=== PATIENT | female | born 1965 | race Hispanic/Latino ===

== ENCOUNTER 2016-11-30 15:24 | Emergency (ER) | payer OTHER ==
[~2016-11-30] VITALS: Ht 152.4 cm; Wt 106.8 kg
[~2016-11-30 15:24] MED LIST: CITA10TA9 PO; LISI-571 PO
[2016-11-30 15:31] VITALS: BP 187/91; PULSE 97; RESP 16; O2SAT 98
--- NOTE | 2016-11-30 15:42 | ED.REPORT ---
HPI-Chest Pain 40 and Over Date of Service November 30, 2016 ED Provider: Karri Yadav MD A 51 year old female with a history of hypertension, GERD and depression presents to the ED with sudden onset chest pain that began at 1500 this afternoon.Symptoms associated with the episode include SOB, diaphoresis and tingling in her arms. [place] and lasted a few minutes. Patient reports recent stressors including a recent car break down and she was unable to contact her . Patient currently takes Lisinopril and Premarin. She denies any previous cardiac history or recent surgery. Nursing Notes Stated Complaint: CHEST PAIN, NUMBNESS/TINGLING BILATERAL ARMS Chief Complaint: Chest Pain Nursing Notes Reviewed: Yes Allergies: Coded Allergies: No Known Allergies (Verified Allergy, Severe, 11/30/16) Scheduled Citalopram (Citalopram) 10 Mg Tablet 10 MG PO DAILY Lisinopril (Lisinopril) 5 Mg Tablet 10 MG PO DAILY General Time Seen by MD: 15:41 Chief Complaint Chest pain Hx Obtained From: Patient Arrived By: Walk-in Sudden in Onset?: No Symptom Duration: Since onset Location: : Chest left: Chest right Quality: Painful Radiation: : Does not radiate Severity: Current: Mild Severity: Maximum: Moderate Associated with: Reports: Diaphoresis, Numbness/Tingling, Shortness of Breath Pertinent Negative: Pt denies other symptoms Recent Healthcare: No recent doctor visit, No recent hospitalization Risk Factors )( CAD Risk Stratification Hypertension Risk factors reviewed )( TAD Risk Stratification Hypertension Risk factors reviewed )( PE Risk Stratification Risk factors reviewed Past Medical History Past Medical History Hypertension GERD Depression Past Surgical History Bilateral Breast biopsy Reports: Cholecystectomy, Tonsillectomy Social History Other Social History: Good social support, Local resident Ambulatory Status Independent Review of Systems Respiratory: Reports: Shortness of breath Cardiovascular: Reports: Chest pain Skin: Reports Diaphoresis Neurologic: Reports: Numbness (tingling in extremities) Complete sys rev & neg: except as marked. Physical Exam Initial Vital Signs Vital Signs (First) Date Time Temp Pulse Resp B/P Pulse Ox O2 Delivery O2 Flow Rate FiO2 11/30/16 15:31 36.8 97 16 187/91 98 Room Air Initial VS: Reviewed Head / Eyes: Atraumatic, Normocephalic, PERRL Neck: Supple, Non-tender, Full range of motion Extremities: Vascular intact, Neuro intact, No swelling (No calf swelling) , No tenderness (No calf tenderness) Skin: Warm, Dry, No cyanosis Neurologic: Alert, Oriented, Nonfocal Psychiatric: Mood/affect normal, Behavior normal, Normal thought content General/Constitutional: Awake, Alert, No acute distress Respiratory / Chest: Atraumatic, Breath sounds NL, Breath sounds = bilat, No respiratory distress Cardiovascular: Heart rate NL, Regular rhythm, Heart sounds NL, No gallop, No murmurs, No rubs, Peripheral circulation NL, Pulses = bilaterally Abdomen: Atraumatic, Soft, Non-tender, No distention Neurologic: Oriented X3, Speech NL, No motor deficits, No sensory deficits, CN II - XII intact, Reflexes equal bilat No lateralizing neuro deficits Interpretation & Diagnostics Lab Results Interpretation Result Diagram: 11/30/16 1550 11/30/16 1550 Test 11/30/16 15:50 White Blood Count 11.9th/mm3 (3.8-10.1) Red Blood Count 4.83mil/mm3 (3.90-5.20) Hemoglobin 14.3g/dL (12.0-15.6) Hematocrit 43.1% (35.0-46.0) Mean Corpuscular Volume 89.2fL (81-100) Mean Corpuscular Hemoglobin 29.6pg (27.0-35.0) Mean Corpuscular Hemoglobin Concent 33.2% (32.0-37.0) Red Cell Distribution Width 12.9% (12.3-15.4) Platelet Count 224bil/L (150-400) Neutrophils (%) (Auto) 60.4% (40-74) Lymphocytes (%) (Auto) 32.5% (14-46) Monocytes (%) (Auto) 5.6% (4-12) Eosinophils (%) (Auto) 0.9% (0-5) Basophils (%) (Auto) 0.3% (0-3) D-Dimer < 0.50mg/L FEU (<0.50) Sodium Level 136mEq/L (134-144) Potassium Level 4.2mEq/L (3.5-5.2) Chloride Level 98mEq/L (97-108) Carbon Dioxide Level 20mmol/L (18-29) Blood Urea Nitrogen 13mg/dL (6-24) Creatinine 0.47mg/dL (0.57-1.00) Estimat Glomerular Filtration Rate 201mL/min (>59) Glucose Level 88mg/dL (60-99) Calcium Level 9.2mg/dL (8.5-10.1) Magnesium Level 2.1mg/dL (1.6-2.6) Total Bilirubin 0.2mg/dL (0.0-1.2) Aspartate Amino Transf (AST/SGOT) 19U/L (0-50) Alanine Aminotransferase (ALT/SGPT) 16U/L (0-32) Alkaline Phosphatase 104U/L (25-150) Troponin T < 0.010ug/L (0.0-0.011) Total Protein 7.3g/dL (6.4-8.4) Albumin 4.3g/dL (3.4-5.0) ECG Interpretation ECG Interpretation: EKG Normal Sinus Rhythm Rate 97 Normal axis Normal intervals No ST segment changes No T wave abnormalities No prior EKG for comparison Time: 15:58 Interpreted by: ED physician X-Ray Chest Interpretation Chest Xray Interpretation: IMPRESSION: No acute cardiopulmonary disease process. 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 All of this [place] and in the setting of multiple recent stressors including [place] her [place] being able to reach her . Upon arrival in the emergency department the patient is afebrile with stable vital signs and in no apparent distress. She is somewhat anxious. Laboratory studies notable as below: leukocytosis of 11.9 otherwise unremarkable CMC Negative Trop Negative D-dimer CXR: Obtained, reviewed and interpreted by myself shows no evidence of infiltrates, effusions or pneumothorax. Cardiac and mediastinal silhouette normal. No bony or soft tissue abnormalities. EKG Normal Sinus Rhythm Rate 97 Normal axis Normal intervals No ST segment changes No T wave abnormalities No prior EKG for comparison Patient was treated with the below medications: Ativan Aspirin IV fluids Patient remained stable and in no apparent distress. I considered pulmonary embolism however the overall presentation is not very suggestive thereof. No physical exam evidence of DVT. She is at slightly higher risk given that she takes Premarin however her d-dimer is negative and she is without tachypnea, tachycardia or respiratory distress. I do not feel that further workup for pulmonary embolism is immediately indicated. EKG and initial screening troponin revealed no findings suggestive of acute coronary syndrome. The presentation is not very convincing thereof and I do not feel that further immediate workup for ACS is indicated. The overall presentation seems most consistent with panic/anxiety as evidenced by multiple recent stressors, sensation of racing heart, hyperventilation causing tingling in the fingertips. At this time the patient is stable and in no apparent distress. She is appropriate for discharge home. She will follow up closely with her primary care physician. She is advised to return for any recurrent symptoms. Prior to discharge follow-up and return precautions were reviewed in detail with the patient who verbalized understanding and agreement with the plan. The patient was discharged in stable condition. Time of Eval: 17:03 Patient Status: Condition improved Re-Evaluation/Progress Note: Patient is informed of her results and diagnosis. All of the patient's questions are addressed. She understands and agrees with treatment plan. Counseled Regarding: Diagnosis, Lab results, Need for follow-up, When/why to return to ED Discharge & Departure Primary Impression: Chest pain Chest pain type: unspecified Qualified Code: R07.9 - Chest pain, unspecified Additional Impressions: Anxiety Panic attack Hormone replacement therapy Disposition: Home Discharge Condition All VS Reviewed: Yes Condition: Improved Patient Instructions: Chest Pain (ED), Generalized Anxiety Disorder (ED) Additional Instructions: Thank you for seeking care at the emergency room. It is difficult for us to make definitive diagnoses in the ED but we believe that your symptoms are likely due to your recent stressors. Our primary goal today in the ED was to evaluate you for any life-threatening conditions. Your evaluation was reassuring. You should follow-up with your primary doctor in the next week for a recheck. You should return to the ED immediately if you develop any fevers, vomiting, cough, shortness of breath, chest pain, lightheadedness, weakness or any other concerning signs or symptoms. Thank you for letting us partake in your care today. Referrals: Sandie Conrad MD (PCP) Scribe Attestation Portions of this note were transcribed by Juni Livingston. I, Dr. Yadav personally performed the history, physical exam and medical decision-making; I reviewed and confirmed the accuracy of the information in the transcribed note. Signed by: León Rasheed, 11/30/16 0061. copies to: Sandie Conrad MD, Beck O MD November 30, 2016 15:42 JUNI LIVINGSTON November 30, 2016 15:59
[2016-11-30 15:59] LABS: BASOPHILS % (AUTO) 0.3 % (0-3); EOSINOPHILS % (AUTO) 0.9 % (0-5); MONOCYTES % (AUTO) 5.6 % (4-12); Mean Corpuscular Hemoglobin 29.6 pg (27.0-35.0); Mean Corpuscular Volume 89.2 fL (81-100); NEUTROPHILS % (AUTO) 60.4 % (40-74); Platelet Count 224 bil/L (150-400)
--- NOTE | 2016-11-30 16:01 | DRSVH ---
PROCEDURE: X-RAY CHEST ONE VIEW, PORTABLE ([id number]) INDICATIONS: chest pain TECHNIQUE: One view of the chest was acquired. COMPARISON: None. FINDINGS: Surgical changes and devices: None. Lungs and pleura: No pleural effusions or pneumothorax. Lungs are clear. Mediastinum: Mediastinal contours appear normal. Heart size is normal. Bones and chest wall: No suspicious bony lesions. Overlying soft tissues appear unremarkable. IMPRESSION: No acute cardiopulmonary disease process. Dictated by: Dariana Zamora MD, PhD on 11/30/2016 at 15:59 Approved by: Dariana Zamora MD, PhD on 11/30/2016 at 15:59
[2016-11-30 16:29] LABS: TROPONIN T < 0.010 ug/L (0.0-0.011)
[2016-11-30] MEDS ORDERED: 0.9% Sodium Chloride 1,000 ML IV ONE (16:35)
[2016-11-30] MEDS ORDERED: LORazepam 0.5 mg Tablet PO ONE (16:35)
[2016-11-30 16:37] LABS: Magnesium 2.1 mg/dL (1.6-2.6)
[2016-11-30 17:16] VITALS: BP 137/80; PULSE 89; RESP 18; O2SAT 94
[2016-11-30 17:38] VITALS: BP 124/78; PULSE 85; RESP 16; O2SAT 96
== END 2016-11-30 17:43 | disposition home or self-care (01) ==
LOC: SED 15:24
DX: R07.9 Chest pain, unspecified (principal); F41.9 Anxiety disorder, unspecified; F41.0 Panic disorder [episodic paroxysmal anxiety]; Z79.890 Hormone replacement therapy; I10 Essential (primary) hypertension; K21.9 Gastro-esophageal reflux disease without esophagitis
CPT/HCPCS: 36415; 71010; 80053; 83735; 84484; 85025; 85378; 93005; 96360; 99285; J7030